=== PATIENT | male | born 1980 | race African-American/Black ===

== ENCOUNTER 2017-05-01 13:03 | Emergency (ER) | payer SELFPAY ==
--- NOTE | ~2017-05-01 | CR227 ---
[facility]. [facility] A Service of [facility] & [facility] RADIOLOGY TEXT RESULTS PATIENT: DANELLE SAM LOCATION: SED : 82 UNIT #: [id number] AGE: [address]: Iris Norris MD SEX: M ORDER DR: [id number] [place] [id number] E MR#: [id number] Acc #: [id number] NAME: DANELLE SAM. : 1980 SEX: M STUDY DATE/TIME: 05/01/2017 16:06 UNIT: SED ROOM: STUDY DESCRIPTION: CR Shoulder 1 View Rt Attending Physician: Iris Norris M.D. Ordering Physician: Iris Norris M.D. Primary Care Physician: No Primary Care Physician MEDICAL IMAGING REPORT This report is preliminary unless electronic signature is present. EXAM Post reduction right shoulder, 05/01/2017. HISTORY Single view shoulder radiograph obtained after reduction of reported shoulder dislocation. No prereduction images obtained here. TECHNIQUE Single AP radiograph of the right shoulder obtained in internal rotation. FINDINGS No evidence of shoulder dislocation following reported reduction. Hill-Sachs deformity is visible along the posterolateral margin of the humeral head. No other osseous abnormality is seen. Dictated by... Matt Jeronimo M.D. THIS IS AN ELECTRONICALLY VERIFIED REPORT Matt Jeronimo M.D. at 05/03/2017 8:50 AM DONW/diego TD: 05/02/2017 10:08 JOB #: [id number] MEDICAL IMAGING REPORT Page 1 of 1
[~2017-05-01 13:03] MED LIST: LORTAB ELIXIR480 ML PO
== END 2017-05-01 16:58 | disposition home or self-care (01) ==
LOC: SED 13:03
DX: S43.004A Unspecified dislocation of right shoulder joint, initial encounter (principal); F17.200 Nicotine dependence, unspecified, uncomplicated; X50.1XXA Overexertion from prolonged static or awkward postures, initial encounter
CPT/HCPCS: 23650; 73020; 96361; 96374; 96375; 99152; 99153; 99283; J1170; J2250; J2405; J3010; J3360